=== PATIENT | female | born 1945 | race Caucasian/White ===

== ENCOUNTER 2017-01-28 10:48 | Inpatient (IN) | payer MEDICARE, OTHER ==
[2017-01-26 10:37] LABS: ABSOLUTE BASOPHILS # (AUTO) 0.1 10^3/uL (0.0-0.2); ABSOLUTE EOSINOPHILS # (AUTO) 0.1 10^3/uL (0.0-0.6); ABSOLUTE LYMPHOCYTES (AUTO) 2.5 10^3/uL (0.5-4.7); ABSOLUTE MONOCYTES (AUTO) 0.7 10^3/uL (0.1-1.4); ABSOLUTE NEUT (AUTO) 7.1 10^3/uL (1.7-8.2); BASOPHILS % (AUTO) 0.6 % (0-2); EOSINOPHILS % (AUTO) 1.4 % (0-6); HEMOGLOBIN 13.3 g/dL (12.0-15.5); HGB HCT DIFFERENCE 0.9; LYMPHOCYTES % (AUTO) 24.2 % (13-45); MEAN CORPUSCULAR HGB CONC 34.1 g/dL (32.0-36.0); MEAN CORPUSCULAR VOLUME 94 fl (80-97); MONOCYTES % (AUTO) 6.4 % (3-13); RED BLOOD COUNT 4.15 10^6/uL (3.72-5.28); RED CELL DISTRIBUTION WIDTH 12.8 % (11.5-14.0); SEGMENTED NEUTROPHILS % (AUTO) 67.4 % (42-78); WHITE BLOOD COUNT 10.5 10^3/uL (4.0-10.5)
[2017-01-26 10:38] LABS: APPEARANCE,URINE CLOUDY; BILIRUBIN,URINE NEGATIVE (NEGATIVE); CALCIUM OXALATE CRYSTALS,URINE MANY /HPF; GLUCOSE, URINE NEGATIVE (NEGATIVE); KETONES,URINE NEGATIVE (NEGATIVE); LEUKOCYTE ESTERASE,URINE MODERATE (NEGATIVE); NITRITE,URINE NEGATIVE (NEGATIVE); PROTEIN,URINE NEGATIVE (NEGATIVE); URINE SPECIFIC GRAVITY 1.026; UROBILINOGEN,URINE NEGATIVE mg/dL (<2.0)
--- NOTE | 2017-01-26 10:42 | RADIOLOGY REPORT (SQ) ---
EXAM DESCRIPTION: CHEST PA/LATERAL COMPLETED DATE/TIME: 01/26/2017 10:19 am REASON FOR STUDY: PRE OP COMPARISON: None. EXAM PARAMETERS: NUMBER OF VIEWS: two views TECHNIQUE: Digital Frontal and Lateral radiographic views of the chest acquired. RADIATION DOSE: NA LIMITATIONS: none FINDINGS: LUNGS AND PLEURA: Abnormal increased density in the left parahilar region with associated volume loss. This may represent chronic scarring. Chest CT is recommended to exclude possibility of mass. Lungs are otherwise clear. No evidence of effusion or pneumothorax. MEDIASTINUM AND HILAR STRUCTURES: No masses or contour abnormalities. HEART AND VASCULAR STRUCTURES: Heart normal size. No evidence for failure. BONES: No acute findings. Osteopenia. Mild thoracic spondylosis. HARDWARE: None in the chest. OTHER: No other significant finding. IMPRESSION: Scarring versus mass in the left parahilar region. Chest CT is recommended for further evaluation. TECHNICAL DOCUMENTATION: JOB ID: [id number] [employer]- All Rights Reserved
[2017-01-26 10:48] LABS: PARTIAL THROMBOPLASTIN TIME 35.3 SEC (23.5-35.8); PROTHROMBIN TIME 12.6 SEC (11.4-15.4)
[2017-01-26 11:37] LABS: ANION GAP 14 (5-19); BLOOD UREA NITROGEN 16 mg/dL (7-20); CARBON DIOXIDE 29 mmol/L (22-30); CHLORIDE 96 mmol/L (98-107); GLUCOSE 120 mg/dL (75-110); POTASSIUM 4.2 mmol/L (3.6-5.0); SODIUM 139.1 mmol/L (137-145)
--- NOTE | 2017-01-26 12:19 | EKG REPORT ---
SEVERITY:- NORMAL ECG - SINUS RHYTHM : Confirmed by: Celestino Young 26-Jan-2017 12:18:16
[~2017-01-28 10:48] MED LIST: CLINDAMYCIN 600 MG/D5W RTU 600 MG/50 ML RTUPB IV PRN; DEXAMETHASONE SOD PHOSPHATE INJ 4 MG/1 ML VIAL ONE; LACTATED RINGERS 1000 ML IV PRN; LIDOCAINE 0.5% INJ-PF (5 MG/ML) 50 ML SDV SUBCUT PRN; METOCLOPRAMIDE HCL INJ/PF 10 MG/2 ML SDV ONE; ONDANSETRON HCL INJ/PF 4 MG/2 ML SDV ONE; SUCCINYLCHOLINE CHLORIDE INJ 200 MG/10 ML VIAL ONE
[2017-01-28] MEDS ORDERED: FENTANYL CITRATE INJ/PF 250 MCG/5 ML AMPULE ONE (13:24)
[2017-01-28] MEDS ORDERED: MIDAZOLAM 2 MG/2 ML INJ ONE (13:25)
[2017-01-28] MEDS ORDERED: EPHEDRINE SULFATE INJ 50 MG/1 ML AMPULE ONE (13:25)
[2017-01-28] MEDS ORDERED: PROPOFOL INJ 200 MG/20 ML VIAL IV ONE (13:26)
[2017-01-28] MEDS ORDERED: HYDROMORPHONE HCL INJ/PF 2 MG/ML AMPULE ONE (13:26)
[2017-01-28] MEDS ORDERED: ACETAMINOPHEN 100 ML IV ONE ×2 (13:26→16:19)
[2017-01-28] MEDS ORDERED: BUPIVACAINE HCL 0.5%-EPI 1:200000 INJ/PF 30 ML VIAL ONE (14:54)
--- NOTE | 2017-01-28 15:13 | Operative Report ---
Operative Report DATE OF SURGERY: 01/28/17 PREOPERATIVE DIAGNOSIS: Right tibial plafond fracture OPERATION: Open reduction internal fixation of right tibial plafond fracture SURGEON: VILMA SALEH ANESTHESIA: Spinal ESTIMATED BLOOD LOSS: 25 PROCEDURE: Patient supine and abdomen table the right lower extremities prepped and draped in a sterile fashion. Limb was elevated for exsanguination tourniquet inflated 280 torr. Initially a Steinmann pin is placed through the plantar surface of the foot into the calcaneus and the fracture was distracted under fluoroscopic guidance to determine what type of reduction could be obtained using the intact soft tissue envelope. Surprisingly near anatomic reduction was obtained. Subsequently a lateral incision was made in the locking plate was applied to the distal fibula. An anterior incision is made and under fluoroscopic guidance using finger reduction as well as a freer elevator reduction of the anterior lateral aspect of the tibial plafond is performed. When the reduction is looked at in the lateral view is a near anatomic reduction of the posterior malleolar fracture. Subsequently pelvic reduction forceps was placed across this and a near anatomic reduction is maintained. A pin was placed through this and through an anterior plate to maintain the sagittal split in the tibial plafond. Subsequent anterior [place] titanium plate is applied and secured with a combination of locking and cortical screws. The fracture reduction and hardware placement are evaluated fluoroscopically and felt to be adequate. The tourniquet was deflated. Wounds irrigated. Hemostasis obtained with electrocautery. The wounds are closed with interrupted Vicryl followed by madhuri. A sterile compressive dressing and a Cam walker applied and patient's return to the PACU in satisfactory condition.
[2017-01-28] MEDS: FENTANYL CITRATE INJ/PF 100 MCG/2 ML AMPUL ONE ×4 (15:30→15:45)
--- NOTE | 2017-01-28 15:42 | RADIOLOGY REPORT (SQ) ---
EXAM DESCRIPTION: NO CHG FLUORO; ANKLE RIGHT COMPLETE COMPLETED DATE/TIME: 01/28/2017 3:27 pm REASON FOR STUDY: ORIF RT ANKLE ASSISTED WITH FLUORO IN OR COMPARISON: None. FLUOROSCOPY TIME: 0.8 minutes 5 Images saved to PACS RADIATION DOSE: 2 mGy LIMITATIONS: None. PROCEDURE: ORIF of the right distal tibia and fibula. FINDINGS: 5 images obtained from the C-arm document open reduction and internal fixation of the dist al tibia fibula. IMPRESSION: ORIF. COMMENT: PQRS 6045F: Fluoroscopy time of the procedure is documented in the report. TECHNICAL DOCUMENTATION: JOB ID: [id number] [employer]- All Rights Reserved
--- NOTE | 2017-01-28 15:42 | RADIOLOGY REPORT (SQ) ---
EXAM DESCRIPTION: NO CHG FLUORO; ANKLE RIGHT COMPLETE COMPLETED DATE/TIME: 01/28/2017 3:27 pm REASON FOR STUDY: ORIF RT ANKLE ASSISTED WITH FLUORO IN OR COMPARISON: None. FLUOROSCOPY TIME: 0.8 minutes 5 Images saved to PACS RADIATION DOSE: 2 mGy LIMITATIONS: None. PROCEDURE: ORIF of the right distal tibia and fibula. FINDINGS: 5 images obtained from the C-arm document open reduction and internal fixation of the dist al tibia fibula. IMPRESSION: ORIF. COMMENT: PQRS 6045F: Fluoroscopy time of the procedure is documented in the report. TECHNICAL DOCUMENTATION: JOB ID: [id number] [employer]- All Rights Reserved
[2017-01-28] MEDS ORDERED: IBUPROFEN INJ 800 MG/8 ML VIAL IV ONE (16:19)
[2017-01-29] MEDS ORDERED: RINGERS SOLUTION,LACTATED 1,000 ML IV PRN (03:21)
[2017-01-29] MEDS ORDERED: MORPHINE SULFATE 10 MG/ML INJ IV PRN (03:22)
[2017-01-29] MEDS ORDERED: ONDANSETRON 4 MG TAB.RAPDIS SL PRN (03:23)
[2017-01-29] MEDS: OXYCODONE HCL IR 5 MG TABLET PO PRN ×3 (05:44→20:50)
[2017-01-29 06:29] LABS: ANION GAP 11 (5-19); BLOOD UREA NITROGEN 13 mg/dL (7-20); CALCIUM 9.5 mg/dL (8.4-10.2); CARBON DIOXIDE 27 mmol/L (22-30); CHLORIDE 103 mmol/L (98-107); CREATININE RESULT 0.66 mg/dL (0.52-1.25); GLUCOSE 108 mg/dL (75-110); POTASSIUM 4.6 mmol/L (3.6-5.0); SODIUM 141.2 mmol/L (137-145)
[2017-01-29 06:39] LABS: HEMATOCRIT 34.9 % (36.0-47.0); HEMOGLOBIN 11.7 g/dL (12.0-15.5); HGB HCT DIFFERENCE 0.2; MEAN CORPUSCULAR HEMOGLOBIN 31.1 pg (27.0-33.4); MEAN CORPUSCULAR HGB CONC 33.5 g/dL (32.0-36.0); MEAN CORPUSCULAR VOLUME 93 fl (80-97); RED BLOOD COUNT 3.75 10^6/uL (3.72-5.28); RED CELL DISTRIBUTION WIDTH 12.9 % (11.5-14.0); WHITE BLOOD COUNT 14.3 10^3/uL (4.0-10.5)
--- NOTE | 2017-01-29 07:07 | PDOC PROGRESS REPORT ---
Subjective Progress Note for:: 01/29/17 Subjective:: Denies any significant discomfort Physical Exam Vital Signs: Temp Pulse Resp BP Pulse Ox 36.7 C 112 H 18 146/80 H 100 01/28/17 23:09 01/28/17 23:09 01/28/17 23:09 01/28/17 23:09 01/28/17 23:09 Intake & Output 01/28/17 01/29/17 01/30/17 06:59 06:59 06:59 Intake Total 3343 Output Total 1725 Balance 1618 Weight 75.2 kg General appearance: PRESENT: no acute distress Head exam: PRESENT: normocephalic Eye exam: PRESENT: EOMI Respiratory exam: PRESENT: unlabored Cardiovascular exam: PRESENT: RRR Vascular exam: PRESENT: normal capillary refill GI/Abdominal exam: PRESENT: soft Rectal exam: PRESENT: deferred Extremities exam: PRESENT: other - Upper extremity immobilized in a Cam walker. There is brisk capillary refill to the toes and sensory examination is intact to light touch. Neurological exam: PRESENT: alert, awake, oriented to person, oriented to place , oriented to time, oriented to situation. ABSENT: motor sensory deficit Psychiatric exam: PRESENT: appropriate affect, normal mood. ABSENT: homicidal ideation, suicidal ideation Skin exam: PRESENT: dry, intact, warm. ABSENT: cyanosis, rash Results Laboratory Results: 01/29/17 05:30 01/29/17 05:30 01/29/17 01/29/17 05:30 05:30 WBC 14.3 H RBC 3.75 Hgb 11.7 L Hct 34.9 L MCV 93 MCH 31.1 MCHC 33.5 RDW 12.9 Plt Count 304 Sodium 141.2 Potassium 4.6 Chloride 103 Carbon Dioxide 27 Anion Gap 11 BUN 13 Creatinine 0.66 Est GFR ( Amer) > 60 Est GFR (Non-Af Amer) > 60 Glucose 108 Calcium 9.5 Impressions: Chest X-Ray 01/26/17 10:04 IMPRESSION: Scarring versus mass in the left parahilar region. Chest CT is recommended for further evaluation. Ankle X-Ray 01/28/17 00:00 IMPRESSION: ORIF. Fluoroscopy 01/28/17 00:00 IMPRESSION: ORIF. Status: Imported from PACS Assessment & Plan - Diagnosis (1) Pilon fracture of right tibia Is this a current diagnosis for this admission?: YesPlan: A 11-year-old white female postop day 1 from open reduction internal fixation of the left tibial plafond fracture. Social situation dictates that the placed in short-term rehab. [facility]. - Time Time Spent with patient: 15-24 minutes Anticipated discharge: SNF Within: when bed available
[2017-01-29] MEDS: ACETAMINOPHEN 325 MG TABLET PO PRN ×2 (13:00→23:03)
[2017-01-29] MEDS: RIVAROXABAN 10 MG TABLET PO SCH (20:50)
--- NOTE | 2017-01-30 07:13 | PDOC PROGRESS REPORT ---
Subjective Progress Note for:: 01/30/17 Subjective:: Reports improved pain Physical Exam Vital Signs: Temp Pulse Resp BP Pulse Ox 36.8 C 90 17 144/80 H 97 01/29/17 20:00 01/29/17 20:00 01/29/17 20:00 01/29/17 20:00 01/29/17 20:00 Intake & Output 01/29/17 01/30/17 01/31/17 06:59 06:59 06:59 Intake Total 3343 1540 Output Total 1725 2014 Balance 1618 -672 Weight 75.2 kg General appearance: PRESENT: no acute distress Head exam: PRESENT: normocephalic Eye exam: PRESENT: EOMI Respiratory exam: PRESENT: unlabored Cardiovascular exam: PRESENT: RRR Pulses: PRESENT: +1 pedal pulses bilateral Vascular exam: PRESENT: normal capillary refill GI/Abdominal exam: PRESENT: soft Rectal exam: PRESENT: deferred Extremities exam: PRESENT: other - Right lower extremity dressing change today. Wounds are clean dry and intact. Results Laboratory Results: 01/29/17 05:30 01/29/17 05:30 Impressions: Chest X-Ray 01/26/17 10:04 IMPRESSION: Scarring versus mass in the left parahilar region. Chest CT is recommended for further evaluation. Ankle X-Ray 01/28/17 00:00 IMPRESSION: ORIF. Fluoroscopy 01/28/17 00:00 IMPRESSION: ORIF. Status: Imported from PACS Assessment & Plan - Diagnosis (1) Pilon fracture of right tibia Is this a current diagnosis for this admission?: YesPlan: 71-year-old white female postop day 2 from an open reduction internal fixation of right tibial plafond fracture. Patient can use the cam walker when out of bed. This can be removed when she is in bed and protected situation. Awaiting placement in a fpc facility. - Time Time Spent with patient: 15-24 minutes Anticipated discharge: SNF Within: when bed available
[2017-01-30] MEDS: OXYCODONE HCL IR 5 MG TABLET PO PRN ×2 (10:37→21:04)
[2017-01-30] MEDS: RIVAROXABAN 10 MG TABLET PO SCH (21:04)
--- NOTE | 2017-01-31 11:33 | PDOC PROGRESS REPORT ---
Subjective Progress Note for:: 01/31/17 Subjective:: Patient seen on rounds this AM. Pain controlled. Denies numbness or tingling. Denies chest pain shortness of breath. Physical Exam Vital Signs: Temp Pulse Resp BP Pulse Ox 97.8 F 83 18 121/69 98 01/31/17 00:00 01/31/17 00:00 01/31/17 00:00 01/31/17 00:00 01/31/17 00:00 Intake & Output 01/30/17 01/31/17 02/01/17 06:59 06:59 06:59 Intake Total 1540 1220 Output Total 2014 1640 [id number] -875 -825 Musculoskeletal exam: PRESENT: other - Right lower extremity: Dressing clean/dry /intact. Ecchymosis and swelling. Compartments soft and compressible no sign of compartment syndrome. Dorsalis pedis pulse 2+. Results Laboratory Results: 01/29/17 05:30 01/29/17 05:30 Impressions: Chest X-Ray 01/26/17 10:04 IMPRESSION: Scarring versus mass in the left parahilar region. Chest CT is recommended for further evaluation. Ankle X-Ray 01/28/17 00:00 IMPRESSION: ORIF. Fluoroscopy 01/28/17 00:00 IMPRESSION: ORIF. Assessment & Plan - Diagnosis (1) Pilon fracture of right tibia Qualifiers: Encounter type: subsequent encounter Fracture type: closed Fracture alignment: displaced Fracture healing: with routine healing Qualified Code(s): S82.871D - Displaced pilon fracture of right tibia, subsequent encounter for closed fracture with routine healing Is this a current diagnosis for this admission?: YesPlan: Status post ORIF right tibial Pilon #1 nonweightbearing right lower extremity #2 DVT prophylaxis #3 pain control #4 discharge planning anticipate discharge 02/02/17 [facility]
[2017-01-31] MEDS: OXYCODONE HCL IR 5 MG TABLET PO PRN ×2 (12:20→22:17)
[2017-01-31] MEDS: RIVAROXABAN 10 MG TABLET PO SCH (21:26)
--- NOTE | 2017-02-01 12:34 | PDOC PROGRESS REPORT ---
Subjective Subjective:: Patient seen on rounds this AM. Pain controlled. Denies numbness or tingling. Denies chest pain shortness of breath. Physical Exam Vital Signs: Temp Pulse Resp BP Pulse Ox 98.3 F 82 18 123/71 98 02/01/17 11:29 02/01/17 11:29 02/01/17 11:29 02/01/17 11:29 02/01/17 11:29 Intake & Output 01/31/17 02/01/17 02/02/17 06:59 06:59 06:59 Intake Total 1220 1080 Output Total 1640 1000 Balance -420 80 Musculoskeletal exam: PRESENT: other - Right lower extremity: Dressing clean/dry /intact no erythema. Dorsalis pedis pulse 2+. Intact flexion extension of the toes. Results Laboratory Results: 01/29/17 05:30 01/29/17 05:30 Impressions: Chest X-Ray 01/26/17 10:04 IMPRESSION: Scarring versus mass in the left parahilar region. Chest CT is recommended for further evaluation. Ankle X-Ray 01/28/17 00:00 IMPRESSION: ORIF. Fluoroscopy 01/28/17 00:00 IMPRESSION: ORIF. Assessment & Plan - Diagnosis (1) Pilon fracture of right tibia Qualifiers: Encounter type: subsequent encounter Fracture type: closed Fracture alignment: displaced Fracture healing: with routine healing Qualified Code(s): S82.871D - Displaced pilon fracture of right tibia, subsequent encounter for closed fracture with routine healing Is this a current diagnosis for this admission?: YesPlan: Status post ORIF right tibial Pilon #1 nonweightbearing right lower extremity #2 DVT prophylaxis #3 pain control #4 discharge planning anticipate discharge 02/02/17 [facility]
[2017-02-01] MEDS: OXYCODONE HCL IR 5 MG TABLET PO PRN ×2 (14:11→21:38)
[2017-02-01] MEDS: RIVAROXABAN 10 MG TABLET PO SCH (21:30)
[2017-02-02] MEDS: OXYCODONE HCL IR 5 MG TABLET PO PRN ×2 (12:25→22:22)
--- NOTE | 2017-02-02 14:38 | PDOC TRANSFER SUMMARY ---
General - Admit/Disc Date/PCP Admission Date/Primary Care Provider: 01/28/17 10:48 Discharge Date: 02/02/17 - Discharge Diagnosis (1) Pilon fracture of right tibia Is this a current diagnosis for this admission?: Yes - Additional Information Resuscitation Status: Full Code Discharge Diet: As Tolerated, Regular Discharge Activity: Balance Activity w/Rest, No Driving, No tub bath Home Medications: Hydrocodone Bit/Acetaminophen [Hydrocodon-Acetaminophen 5-325] 1 tab PO Q4HP PRN 01/28/17 Oxycodone HCl [Oxy-Ir 5 mg Tablet] 5 mg PO Q6HP PRN #0 tablet 02/02/17 Rivaroxaban [Xarelto 10 mg Tablet] 10 mg PO QHS #0 tablet 02/02/17 History of Present Illness Admission Date/PCP: 01/28/17 10:48 History of Present Illness: HARISH DARLING is a 71 year old female sustained a right tibial pilon fracture as a result of a fall. She now presents for open reduction internal fixation Hospital Course Hospital Course: Admitted through the operating room where she undergoes an uncomplicated right tibial pilon fracture reconstruction. She is returned to the floor in satisfactory condition. Dressing is changed on postop day 2. Wound is clean dry and intact. There is swelling and ecchymosis about the foot but pain is under reasonable control. Patient makes excellent progress with physical therapy and mobilization. She is now ready for discharge to a [facility] facility. Physical Exam Vital Signs: Temp Pulse Resp BP Pulse Ox 36.6 C 90 12 119/66 98 02/02/17 12:00 02/02/17 12:00 02/02/17 12:00 02/02/17 12:00 02/02/17 12:00 Intake & Output 02/01/17 02/02/17 02/03/17 06:59 06:59 06:59 Intake Total 1080 600 Output Total 1000 1 Balance 80 599 General appearance: PRESENT: no acute distress Head exam: PRESENT: normocephalic Respiratory exam: PRESENT: unlabored Cardiovascular exam: PRESENT: RRR Pulses: PRESENT: +1 pedal pulses bilateral Vascular exam: PRESENT: normal capillary refill GI/Abdominal exam: PRESENT: soft Rectal exam: PRESENT: deferred Extremities exam: PRESENT: +1 edema Neurological exam: PRESENT: alert, awake, oriented to person, oriented to place , oriented to time, oriented to situation. ABSENT: motor sensory deficit Psychiatric exam: PRESENT: appropriate affect, normal mood. ABSENT: homicidal ideation, suicidal ideation Skin exam: PRESENT: dry, intact, warm. ABSENT: cyanosis, rash Results Laboratory Results: 01/29/17 05:30 01/29/17 05:30 Impressions: Chest X-Ray 01/26/17 10:04 IMPRESSION: Scarring versus mass in the left parahilar region. Chest CT is recommended for further evaluation. Ankle X-Ray 01/28/17 00:00 IMPRESSION: ORIF. Fluoroscopy 01/28/17 00:00 IMPRESSION: ORIF. Status: Imported from PACS Transfer Plan - Disposition Transfer Plan: And to be transferred to a [facility] facility on a restricted weightbearing basis on the right lower extremity. Patient is to be nonweightbearing on the right lower extremity. Dressings can be changed if they become soiled. Follow-up with Dr. Ellis in the [facility] for surgery in 2 weeks for staple removal.
[2017-02-02] MEDS: RIVAROXABAN 10 MG TABLET PO SCH (22:21)
[2017-02-03 13:38] VITALS: BP 124/67
== END 2017-02-03 14:29 | disposition home health service (06) | DRG 494 ==
LOC: INOR 10:48 → 4S 17:25
PROVIDERS: ADMIT Orthopaedic Surgery; ATTEND Orthopaedic Surgery
PROC: 0QSG04Z Reposition Right Tibia with Internal Fixation Device, Open Approach (ICD-10-PCS; principal; 2017-01-28 13:00)
DX: S82.871A Displaced pilon fracture of right tibia, initial encounter for closed fracture (principal); K21.9 Gastro-esophageal reflux disease without esophagitis; V49.9XXA Car occupant (driver) (passenger) injured in unspecified traffic accident, initial encounter; Z88.0 Allergy status to penicillin; Z88.2 Allergy status to sulfonamides; Z88.1 Allergy status to other antibiotic agents; Z91.040 Latex allergy status
CPT/HCPCS: 01480; 36415; 71020; 80048; 81001; 85025; 85027; 85610; 85730; 93005; 93010; C1713; G8978-GP; G8979-GP; J0131; J0330; J1100; J1170; J1741; J2250; J2405; J2704; J2765; J3010; J3490

== ENCOUNTER 2017-03-25 10:26 | Day surgery (SDC) | payer OTHER, MEDICARE ==
--- NOTE | 2017-03-20 11:13 | RADIOLOGY REPORT (SQ) ---
EXAM DESCRIPTION: CHEST PA/LATERAL COMPLETED DATE/TIME: 03/20/2017 11:02 am REASON FOR STUDY: PRE OP COMPARISON: 01/26/2017 EXAM PARAMETERS: NUMBER OF VIEWS: two views TECHNIQUE: Digital Frontal and Lateral radiographic views of the chest acquired. RADIATION DOSE: NA LIMITATIONS: none FINDINGS: LUNGS AND PLEURA: There is scarring versus mass in the left perihilar region. The left hi lum is slightly elevated. No acute infiltrate is appreciated. There is no pleural effusion. MEDIASTINUM AND HILAR STRUCTURES: No masses or contour abnormalities. HEART AND VASCULAR STRUCTURES: Heart normal size. No evidence for failure. BONES: No acute findings. HARDWARE: None in the chest. OTHER: No other significant finding. IMPRESSION: Scarring versus perihilar mass on the left. TECHNICAL DOCUMENTATION: JOB ID: [id number] [employer]- All Rights Reserved
[2017-03-20 11:22] LABS: ABSOLUTE BASOPHILS # (AUTO) 0.1 10^3/uL (0.0-0.2); ABSOLUTE EOSINOPHILS # (AUTO) 0.2 10^3/uL (0.0-0.6); ABSOLUTE LYMPHOCYTES (AUTO) 2.9 10^3/uL (0.5-4.7); ABSOLUTE MONOCYTES (AUTO) 0.6 10^3/uL (0.1-1.4); BASOPHILS % (AUTO) 0.6 % (0-2); EOSINOPHILS % (AUTO) 1.9 % (0-6); HEMATOCRIT 44.6 % (36.0-47.0); HGB HCT DIFFERENCE 0.4; LYMPHOCYTES % (AUTO) 29.8 % (13-45); MEAN CORPUSCULAR HEMOGLOBIN 31.4 pg (27.0-33.4); MEAN CORPUSCULAR HGB CONC 33.7 g/dL (32.0-36.0); MEAN CORPUSCULAR VOLUME 93 fl (80-97); MONOCYTES % (AUTO) 6.3 % (3-13); RED BLOOD COUNT 4.79 10^6/uL (3.72-5.28); RED CELL DISTRIBUTION WIDTH 13.3 % (11.5-14.0); SEGMENTED NEUTROPHILS % (AUTO) 61.4 % (42-78); WHITE BLOOD COUNT 9.7 10^3/uL (4.0-10.5)
[2017-03-20 11:37] LABS: ANION GAP 16 (5-19); BLOOD UREA NITROGEN 18 mg/dL (7-20); CALCIUM 10.9 mg/dL (8.4-10.2); CARBON DIOXIDE 28 mmol/L (22-30); CHLORIDE 98 mmol/L (98-107); CREATININE RESULT 0.92 mg/dL (0.52-1.25); GLUCOSE 111 mg/dL (75-110); POTASSIUM 4.6 mmol/L (3.6-5.0); SODIUM 141.5 mmol/L (137-145)
[2017-03-20 11:38] LABS: APPEARANCE,URINE CLOUDY; BILIRUBIN,URINE NEGATIVE (NEGATIVE); CALCIUM OXALATE CRYSTALS,URINE MANY /HPF; GLUCOSE, URINE NEGATIVE (NEGATIVE); KETONES,URINE NEGATIVE (NEGATIVE); LEUKOCYTE ESTERASE,URINE MODERATE (NEGATIVE); NITRITE,URINE NEGATIVE (NEGATIVE); PROTEIN,URINE NEGATIVE (NEGATIVE); UROBILINOGEN,URINE NEGATIVE mg/dL (<2.0)
--- NOTE | 2017-03-20 13:20 | EKG REPORT ---
SEVERITY:- NORMAL ECG - SINUS RHYTHM : Confirmed by: Simeon Hastings MD 20-Mar-2017 13:19:13
[~2017-03-25 10:26] MED LIST changes: -DEXAMETHASONE SOD PHOSPHATE INJ 4 MG/1 ML VIAL ONE; -METOCLOPRAMIDE HCL INJ/PF 10 MG/2 ML SDV ONE; -ONDANSETRON HCL INJ/PF 4 MG/2 ML SDV ONE; -SUCCINYLCHOLINE CHLORIDE INJ 200 MG/10 ML VIAL ONE
[2017-03-25] MEDS ORDERED: KETOROLAC TROMETHAMINE 60 MG/2 ML SDV ONE (10:31)
[2017-03-25] MEDS ORDERED: SUCCINYLCHOLINE CHLORIDE INJ 200 MG/10 ML VIAL ONE (10:31)
[2017-03-25] MEDS ORDERED: DEXAMETHASONE SOD PHOSPHATE INJ 4 MG/1 ML VIAL ONE (10:31)
[2017-03-25] MEDS ORDERED: LIDOCAINE 2% INJ-PF (20 MG/ML) 10 ML AMPUL ONE (10:31)
[2017-03-25] MEDS ORDERED: ONDANSETRON HCL INJ/PF 4 MG/2 ML SDV ONE (10:32)
--- NOTE | 2017-03-25 11:56 | RADIOLOGY REPORT (SQ) ---
EXAM DESCRIPTION: PICC INSERTION; FLUORO/CV PLACEMENT; U/S GUIDE FOR VASCULAR ACCESS COMPLETED DATE/TIME: 03/25/2017 11:46 am REASON FOR STUDY: RIGHT ANKLE INFECTION; IV ABX S82.871A DISPLACED PILON FRACTURE OF RIGHT TIBIA, I NIT FOR C COMPARISON: None. FLUOROSCOPY TIME: Chest films 03/20/2017 1 digital chest and 1 ultrasound images saved to PACS. TECHNIQUE: Fluoroscopic and ultrasound guided PICC placement. LIMITATIONS: None. PROCEDURE: After written consent and assessment were obtained, the patient was brought into the fluo roscopy room and place supine on the table. Ultrasound was used on the patient's left arm for PICC a ccess. The left arm was prepped and draped in a sterile fashion along with the ultrasound probe. The entry site was anesthetized with 1% lidocaine. A 21 gauge 7 cm needle was advanced through the skin a nd into the basilic vein under live ultrasound guidance. An ultrasound image was saved to PACS confi rming access site. A .018 guide wire was then inserted through the needle and into the venous system . The needle was the removed and an 11 blade scalpel was used to make a 1cm skin incision. A 5 fr pe el-away sheath was advanced over the wire and into the venous system. A measurement was then made usi ng the existing wire and live fluoroscopic guidance. The wire was then removed and the trimmed. The P ICC was advanced through the peel-away sheath and into the venous system. The peel-away sheath was re moved and the catheter was adhered to the patients arm with a stat lock. The catheter was then aspira janet and flushed and a sterile bandage was placed over the access site. A fluoroscopic spot image was saved to PACS confirming the catheter tip within the superior vena cava. IMPRESSION: SUCCESSFUL PLACEMENT OF A 5 FR DUAL LUMEN 39 CM PICC IN THE LEFT BASILIC VEIN. COMMENT: Patient medication list reviewed: Yes- Quality ID# [id number]:Eligible professional attests to doc umenting in the medical record they obtained, updated, or reviewed the patient's current medications. . Quality ID 145: Final reports for procedures using fluoroscopy that document radiation exposure mili trista, or exposure time and number of fluorographic images (if radiation exposure indices are not avail able) Quality ID #76: The patient was prepped and draped using maximum sterile barrier technique including cap, mask, sterile gown, sterile gloves, a large sterile sheet, hand hygiene, and 2% Chlorhexidine fo r cutaneous antisepsis. When ultrasound is used, sterile ultrasound techniques are followed requiring sterile gel and sterile probes. TECHNICAL DOCUMENTATION: JOB ID: [id number] [employer]- All Rights Reserved
[2017-03-25] MEDS ORDERED: BUPIVACAINE HCL 0.5%-EPI 1:200000 INJ/PF 30 ML VIAL ONE (12:32)
[2017-03-25] MEDS ORDERED: FENTANYL CITRATE INJ/PF 100 MCG/2 ML AMPUL ONE (12:38)
[2017-03-25] MEDS ORDERED: PROPOFOL INJ 200 MG/20 ML VIAL IV ONE (12:38)
[2017-03-25] MEDS ORDERED: MIDAZOLAM 2 MG/2 ML INJ ONE (12:38)
[2017-03-25] MEDS ORDERED: ACETAMINOPHEN 100 ML IV ONE (12:39)
[2017-03-25] MEDS ORDERED: MORPHINE SULFATE 10 MG/ML INJ IV PRN (13:20)
[2017-03-25] MEDS ORDERED: PROMETHAZINE HCL INJ 25 MG/1 ML VIAL IV PRN ×2 (13:20)
[2017-03-25] MEDS ORDERED: DIPHENHYDRAMINE HCL 50 MG/ML VIAL IV PRN (13:20)
[2017-03-25] MEDS ORDERED: OXYCODONE-ACETAMINOPHEN 5-325 MG TABLET PO PRN ×2 (13:20)
[2017-03-25] MEDS ORDERED: MEPERIDINE HCL/PF INJ 25 MG/1 ML DISP.SYRIN IV PRN (13:20)
[2017-03-25] MEDS ORDERED: FENTANYL CITRATE INJ/PF 100 MCG/2 ML AMPUL IV PRN ×3 (13:20)
--- NOTE | 2017-03-25 13:49 | Operative Report ---
Operative Report DATE OF SURGERY: 03/25/17 PREOPERATIVE DIAGNOSIS: Prominent hardware status post open reduction internal fixation right ankle fracture OPERATION: I&D of right ankle wound including skin subcutaneous tissue and fascia. Removal of hardware SURGEON: VILMA SALEH ANESTHESIA: GA TISSUE REMOVED OR ALTERED: Cultures to microbiology ESTIMATED BLOOD LOSS: Minimal PROCEDURE: The patient supine abdomen table the right lower extremities prepped and draped sterile fashion. The open wound over the anteromedial aspect of the ankle is debrided sharply using a 15 blade. This included skin subcutaneous tissue and fascia. It leaves exposed bone as well as anterior tibialis tendon. Of note the distal articular surface facture of the tibia is without significant healing. subsequently the underlying plate is identified. The appropriate screws were removed followed by the plate. At this point wound is irrigated. Hemostasis obtained with electrocautery. The wound was reapproximated with interrupted nylon. A sterile compressive dressing is applied and the patient was turned to the PACU in satisfactory condition.
[2017-03-25] MEDS ORDERED: HYDROCODONE/ACETAMINOPHEN 5-325 MG TABLET ONE (14:32)
[2017-03-25] MEDS ORDERED: HYDROCODONE/ACETAMINOPHEN 5-325 MG TABLET PO PRN (14:46)
[2017-03-25] MEDS ORDERED: ONDANSETRON 4 MG TAB.RAPDIS SL PRN (14:47)
[2017-03-25 16:01] VITALS: BP 115/69
--- NOTE | 2017-03-25 16:21 | RADIOLOGY REPORT (SQ) ---
EXAM DESCRIPTION: ANKLE RIGHT AP/LATERAL; NO CHG FLUORO COMPLETED DATE/TIME: 03/25/2017 2:39 pm REASON FOR STUDY: HARDWARE REMOVAL RT ANKLE ASSISTED WITH FLUORO IN OR S82.871A DISPLACED PILON FRA CTURE OF RIGHT TIBIA, INIT FOR C COMPARISON: 01/28/2017 operative images FLUOROSCOPY TIME: 0.1 minutes 2 C-arm imagessaved to PACS. TECHNIQUE: Intra-operative images acquired during surgical procedure to evaluate progress. NUMBER OF IMAGES: 2 fluoro images LIMITATIONS: None. FINDINGS: Intra procedural imaging and fluoro during distal tibial hardware removal. Please see ope rative report for further detail IMPRESSION: Intra procedural imaging and fluoro COMMENT: Quality ID 145: Final reports for procedures using fluoroscopy that document radiation exp osure indices, or exposure time and number of fluorographic images (if radiation exposure indices are not available) Please consult full operative report of the attending physician for description of the procedure. TECHNICAL DOCUMENTATION: JOB ID: [id number] [employer]- All Rights Reserved
== END 2017-03-25 15:45 | disposition home or self-care (01) ==
LOC: OROUT 10:26
PROVIDERS: ATTEND Orthopaedic Surgery
PROC: 0JBN0ZZ Excision of Right Lower Leg Subcutaneous Tissue and Fascia, Open Approach (ICD-10-PCS; 2017-03-25)
PROC: 05HC33Z Insertion of Infusion Device into Left Basilic Vein, Percutaneous Approach (ICD-10-PCS; 2017-03-25)
PROC: 0QPG04Z Removal of Internal Fixation Device from Right Tibia, Open Approach (ICD-10-PCS; principal; 2017-03-25 13:15)
DX: Z47.2 Encounter for removal of internal fixation device (principal); S82.51XD Displaced fracture of medial malleolus of right tibia, subsequent encounter for closed fracture with routine healing; X58.XXXD Exposure to other specified factors, subsequent encounter; S82.871A Displaced pilon fracture of right tibia, initial encounter for closed fracture; S90.821A Blister (nonthermal), right foot, initial encounter; X58.XXXA Exposure to other specified factors, initial encounter; Z88.0 Allergy status to penicillin; Z88.2 Allergy status to sulfonamides; Z88.1 Allergy status to other antibiotic agents; Z91.040 Latex allergy status
CPT/HCPCS: 93005; 36415; 87070; 87205; 85025; 87075; 87077; 80048; 81001; 87186; 73600; 71020; 36569; 77001; 76937; 93010; 20680; J2250; J3490 ×2; J1100; J1885; J3010; J0330; J2405; J2704; J1642; J0131; 01480